=== PATIENT | female | born 1945 | race Caucasian/White ===

== ENCOUNTER → 2025-01-28 | Outpatient (CLI) | payer MEDICARE, SELFPAY ==
[2025-01-28 09:49] LABS: Collection Type, Urine Clean Catch
[2025-01-28 10:26] LABS: Basophils # (Auto) 0.1 Thou/mm3 (0.0-0.2); Basophils % (Auto) 1 % (0-2.5); Eosinophils # (Auto) 0.1 Thou/mm3 (0.0-0.5); Eosinophils % (Auto) 2 % (0-10); Hematocrit 39.3 % (36.0-46.0); Hemoglobin 14.1 g/dL (12.0-16.0); Immature Granulocytes % (Auto) 0 % (0-0); Immature Granulocytes Auto 0.01 Thou/mm3 (0.00-0.00); Lymphocytes % (Auto) 33 % (10-50); Mean Corpuscular HGB Conc 35.9 g/dl (31.0-37.0); Mean Corpuscular Hemoglobin 34.1 pg (25.0-35.0); Mean Corpuscular Volume 95 fL (80-100); Monocytes # (Auto) 0.6 Thou/mm3 (0.0-0.8); Monocytes % (Auto) 9 % (0-12); Neutrophils # (Auto) 3.3 Thou/mm3 (1.8-7.7); Neutrophils % (Auto) 55 % (37-80); Nucleated Red Blood Cell % 0 /100 WBC (0); Platelet Count 267 Thou/mm3 (140-440); RDW Standard Deviation 39.4 fL (36.4-46.3); Red Blood Count 4.13 Miln/mm3 (4.00-5.20); White Blood Count 6.1 Thou/mm3 (3.6-11.0)
[2025-01-28 10:34] LABS: Bilirubin,Urine Negative (Negative); Blood,Urine Negative (Negative); Clarity,Urine Clear (Clear/Hazy); Color,Urine Colorless (Lt Yel-Yel); Culture Indicated,Urine Not Indicated; Glucose, Urine Negative (Negative); Ketones,Urine Negative (Negative); Leukocyte Esterase,Urine Negative (Negative); Nitrite,Urine Negative (Negative); Protein,Urine Negative (Neg - Trace); RBC,Urine 1 /hpf (0-3); Specific Gravity,Urine 1.004 (1.001-1.035); Squamous Epithelial Cell,Urine < 1 /hpf (0-5); Urobilinogen,Urine Negative mg/dL (0.0-1.0); WBC,Urine < 1 /hpf (0-5)
[2025-01-28 10:44] LABS: Glucose Estimated Average 97 mg/dL (80-131)
[2025-01-28 10:53] LABS: Vitamin D 25 Hydroxy Total 42.4 ng/mL (7.3-40.2)
[2025-01-28 11:07] LABS: Alanine Aminotransferase 9 U/L (10-49); Albumin, Serum 4.4 gm/dL (3.4-4.8); Albumin/Globulin Ratio 1.9 (1.2-2.2); Alkaline Phosphatase 85 U/L (46-116); Amylase 50 U/L (30-118); Anion Gap 9 (7-16); Aspartate Amino Transferase 18 U/L (0-34); BUN/Creatinine Ratio 8 Ratio (12-20); Bilirubin,Total 0.8 mg/dL (0.3-1.2); Blood Urea Nitrogen 6 mg/dL (9-23); Calcium 9.1 mg/dL (8.3-10.6); Calcium (Corrected) 9.1 mg/dL (8.5-10.1); Carbon Dioxide 25.7 mMol/L (20.0-31.0); Cardiac Risk Estimate 2.9 RATIO (3.7-5.6); Chloride 106 mMol/L (98-107); Cholesterol 203 mg/dL (132-200); Creatinine (Component) 0.8 mg/dL (0.6-1.3); Globulin 2.3 gm/dL (2.3-3.5); Glucose 91 mg/dL (74-106); HDL Cholesterol 69 mg/dL (40-60); LDL Cholesterol,Calculated 112 mg/dL (0-130); Lipase 33 U/L (12-53); Osmolality,Calculated 278 (275-295); Potassium 4.8 mMol/L (3.4-5.1); Sodium 141 mMol/L (136-145); Thyroid Stimulating Hormone 2.52 uIU/mL (0.55-4.78); Total Protein 6.7 gm/dL (5.7-8.2); Triglycerides 110 mg/dL (30-150); eGFR > 60 See Note
[2025-01-28 15:09] LABS: Clostridium Difficile PCR Negative (Negative)
== END | disposition home or self-care (01) ==
LOC: COPL 08:59
PROVIDERS: PCP Family Medicine; Referring Provider Registered Nurse; Visit Provider Registered Nurse
DX: R19.7 Diarrhea, unspecified (principal); R79.89 Other specified abnormal findings of blood chemistry
CPT/HCPCS: 36415; 80053; 80061; 81001; 82150; 82306; 83036; 83690; 84443; 85025; 87015; 87045; 87046; 87177; 87209; 87493; 87899

== ENCOUNTER → 2025-05-15 | Outpatient (CLI) | payer MEDICARE, SELFPAY ==
--- NOTE | 2025-05-15 09:15 | XR_ITS ---
Examination: Esophagram standard Fluoroscopy 17 spot fluoroscopic films of the esophagus. Upright PA chest single view Upright soft tissue lateral neck single view Date and time: May 15, 2025 0919 hours INDICATIONS: Difficulty swallowing 3 years. TECHNIQUE AND FINDINGS: Upright PA chest single view demonstrates normal heart size, lungs are clear. Old fractures right fifth, sixth, seventh ribs Soft tissue lateral neck demonstrates advanced degenerative disc disease C4-C5, C5-C6, normal epiglottis Patient swallowed thin barium with primary peristaltic esophageal waves noted Secondary tertiary esophageal contractions noted Moderate continuous gastroesophageal reflux. 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 Fluoroscopy 0.11 minute, 17 spot fluoroscopic films
== END | disposition home or self-care (01) ==
LOC: CDIM 08:51
PROVIDERS: PCP Family Medicine; Referring Provider Registered Nurse; Visit Provider Registered Nurse
DX: K21.9 Gastro-esophageal reflux disease without esophagitis (principal); K22.2 Esophageal obstruction; K22.89 Other specified disease of esophagus; R05.3 Chronic cough
CPT/HCPCS: 74220; A4649

== ENCOUNTER → 2025-06-30 | Outpatient (CLI) | payer MEDICARE, SELFPAY ==
[2025-06-30 18:26] LABS: Thyroid Stimulating Hormone 2.77 uIU/mL (0.55-4.78)
[2025-07-07 07:05] LABS: ANA Screen, IFA NEGATIVE (NEGATIVE)
== END | disposition home or self-care (01) ==
LOC: COPL 16:38
PROVIDERS: PCP Family Medicine; Referring Provider Family Medicine; Visit Provider Family Medicine
DX: E78.9 Disorder of lipoprotein metabolism, unspecified (principal)
CPT/HCPCS: 36415; 84443; 86038